=== PATIENT | female | born 1965 | race Caucasian/White ===

== ENCOUNTER 2016-11-22 23:02 | Emergency (ER) | payer SELFPAY ==
--- NOTE | 2016-11-22 23:28 | C.PDOC ---
History Of Present Illness Patient is a 51 y/o female, whose past medical history includes hypertension, and diabetes, that presents to the ED for evaluation of fluctuating blood pressure for the last week. Patient states her blood pressure was 180/86 today. Patient states that she also developed epigastric abdominal pain today at 17: 00. Notes feeling bloated. Patient states her pain faded away after taking Prilosec. Otherwise, denies any n/v/d, fever, headache, dizziness, chest pain, shortness of breath, or any other associated symptoms at this time. Time Seen by Provider: 11/22/16 23:15 Chief Complaint (Nursing): Chest Pain History Per: Patient History/Exam Limitations: no limitations Onset/Duration Of Symptoms: Days (1 week) Current Symptoms Are (Timing): Gone Quality: Other (gas) Associated Symptoms: denies: Nausea, Dyspnea, Diaphoresis, Syncope Modifying Factors: None Exacerbating Factors: None Alleviating Factors: None Recent travel outside of the [place]: No Additional History Per: Patient Past Medical History Reviewed: Historical Data, Nursing Documentation, Vital Signs Vital Signs: Last Vital Signs Temp 97.6 F 11/22/16 23:11 Pulse 86 11/22/16 23:11 Resp 14 11/22/16 23:11 BP 139/89 11/22/16 23:11 Pulse Ox 100 11/22/16 23:38 - Medical History PMH: Diabetes, HTN Surgical History: Family History: States: Unknown Family Hx - Social History Hx Alcohol Use: No Hx Substance Use: No - Immunization History Hx Influenza Vaccination: No Review Of Systems Except As Marked, All Systems Reviewed And Found Negative. Constitutional: Negative for: Fever, Chills Cardiovascular: Negative for: Chest Pain, Palpitations, Light Headedness Respiratory: Negative for: Cough, Shortness of Breath Gastrointestinal: Negative for: Nausea, Vomiting, Abdominal Pain, Diarrhea, Constipation Neurological: Negative for: Weakness, Numbness, Headache, Dizziness Physical Exam - Physical Exam Appears: Non-toxic, Other (Uncomfortable) Skin: Normal Color, Warm, Dry, No Rash Head: Atraumatic, Normacephalic Eye(s): bilateral: Normal Inspection, EOMI Neck: Normal ROM, Supple Chest: Symmetrical, No Deformity, No Tenderness Cardiovascular: Rhythm Regular, No Murmur Respiratory: Normal Breath Sounds, No Accessory Muscle Use, No Rales, No Rhonchi , No Wheezing Gastrointestinal/Abdominal: Normal Exam, Soft, No Tenderness (no localized tenderness), No Guarding, No Rebound Extremity: Normal ROM, No Deformity Neurological/Psych: Oriented x3, Normal Speech, Normal Cognition ED Course And Treatment - Laboratory Results Result Diagrams: 11/22/16 23:31 11/22/16 23:31 Lab Interpretation: Abnormal (WBC 12.7, Hgb 9.8, Hct 31.6, K+ 2.9 Na+ 131) ECG: Interpreted By Me ECG Rhythm: Sinus Rhythm (with prolonged QT interval) O2 Sat by Pulse Oximetry: 100 (on RA) Pulse Ox Interpretation: Normal Progress Note: EKG, blood work ordered and reviewed. Blood pressure was found to be 139/89 in the ER. Reevaluation Time: 00:10 Reassessment Condition: Unchanged (CT abdomen and pelvis ordered.) Disposition - Disposition Disposition Time: 00:11 Condition: STABLE - Clinical Impression Clinical Impression: Epigastric abdominal pain - Scribe Statement The provider has reviewed the documentation as recorded by the Scribnat Higgins All medical record entries made by the Scribe were at my direction and personally dictated by me. I have reviewed the chart and agree that the record accurately reflects my personal performance of the history, physical exam, medical decision making, and the department course for this patient. I have also personally directed, reviewed, and agree with the discharge instructions and disposition. Physician Patient Turnover Patient Signed Over To: Chris Hdez Handoff Comments: pending CT results
[2016-11-22 23:37] LABS: BASO # 0.1 K/uL (0.0-0.2); EOS # 0.1 K/uL (0.0-0.7); EOS % 0.4 % (0.0-4.0); HEMOGLOBIN 9.8 g/dL (11.0-16.0); LYMPH # 4.1 K/uL (1.0-4.3); LYMPH % 32.1 % (20.0-40.0); MEAN CORPUSCULAR HGB CONC 30.9 g/dL (33.0-37.0); MEAN PLATELET VOLUME 8.5 fL (7.2-11.7); MONO # 0.7 K/uL (0.0-0.8); MONO % 5.2 % (0.0-10.0); NEUT # 7.8 K/uL (1.8-7.0); NEUT % 61.3 % (50.0-75.0); RBC 4.45 Mil/uL (3.80-5.20); RED CELL DISTRIBUTION WIDTH 17.3 % (11.5-14.5); WHITE BLOOD COUNT 12.7 K/uL (4.8-10.8)
[2016-11-22 23:45] LABS: AST/SGOT 11 U/L (14-36); GFR AFRICAN-AMERICAN > 60; GFR NON-AFRICAN AMERICAN > 60
[2016-11-22 23:46] LABS: ALB/GLOB RATIO 1.1 (1.0-2.1); ALT/SGPT 21 U/L (9-52); BLOOD UREA NITROGEN 6 mg/dL (7-17); CALCIUM 8.3 mg/dl (8.6-10.4); LIPASE 56 U/L (23-300)
[2016-11-23] MEDS ORDERED: Potassium Chloride 20 mEq ER Tab PO STA (00:07)
[2016-11-23] MEDS ORDERED: Potassium Chloride 20 mEq ER Tab PO ONE (00:12)
[2016-11-23] MEDS ORDERED: Iohexol 240 (50 ml) ONE (00:16)
[2016-11-23] MEDS ORDERED: Iodixanol 320 MG/ML 100 ML BOTTLE IV ONE (01:09)
[2016-11-23 02:35] VITALS: BP 102/65; PULSE 74; RESP 18; TEMP 98.4; O2SAT 98
--- NOTE | 2016-11-23 09:39 | CT ---
PROCEDURE: CT Abdomen and Pelvis with contrast HISTORY: abdominal pain COMPARISON: None. TECHNIQUE: Helical CT of the abdomen pelvis was performed following oral and dynamic intravenous contrast administration. Clinical history of abdominal pain. Contrast dose: Visipaque 320-100 cc Radiation dose: Total exam DLP = 367 mGy-cm. This CT exam was performed using one or more of the following dose reduction techniques: Automated exposure control, adjustment of the mA and/or kV according to patient size, and/or use of iterative reconstruction technique. FINDINGS: LOWER THORAX: Unremarkable. LIVER: Unremarkable. No gross lesion or ductal dilatation. GALLBLADDER AND BILE DUCTS: Unremarkable. PANCREAS: Unremarkable. No gross lesion or ductal dilatation. SPLEEN: Unremarkable. ADRENALS: Unremarkable. No mass. KIDNEYS AND URETERS: Unremarkable. No hydronephrosis. No solid mass. VASCULATURE: Unremarkable. No aortic aneurysm. BOWEL: Unremarkable. No obstruction. No gross mural thickening. APPENDIX: Normal appendix. PERITONEUM: Unremarkable. No free fluid. No free air. LYMPH NODES: Unremarkable. No enlarged lymph nodes. BLADDER: Unremarkable. REPRODUCTIVE: Right appears prominent measuring 2.5 x 4.7 cm appearing hypoechoic, likely containing multiple cysts or possibly complex solitary cyst. Follow-up transvaginal ultrasound is advised for greater characterization. Uterus appears somewhat bulbous and inhomogeneous enhancement and underlying fibroids are not excluded. Left adnexal compartment appears unremarkable. BONES: Advanced degenerate disc disease L5-S1. Multilevel inferior thoracic spondylosis is also identified. OTHER FINDINGS: None. IMPRESSION: 1. No definite acute abdominal findings. 2. Upon right ovaries identified measuring 4.7 cm greatest dimension with likely multiple cysts internally or Salter complex cyst. Consider follow-up transvaginal pelvic ultrasound for greater characterization. Fibroid uterine disease is also considered.
--- NOTE | 2016-11-24 00:25 | CARD ---
APPROVED REPORT EKG Measurement Heart [id number] [place] [id number] <Conclusion> Normal sinus rhythm Prolonged QT Abnormal ECG
== END 2016-11-23 02:31 | disposition home or self-care (01) ==
LOC: C.ER 23:02
DX: R10.13 Epigastric pain (principal); E87.6 Hypokalemia
CPT/HCPCS: 74177; 80053; 83690; 84484; 85025; 93005; 99284; Q9967

== ENCOUNTER 2016-12-02 23:46 | Emergency (ER) | payer SELFPAY ==
[2016-12-03 00:03] VITALS: O2SAT 100
--- NOTE | 2016-12-03 00:21 | C.PDOC ---
History Of Present Illness 51 yo female, hx of htn, dm, presents with "high b/p". as per pt, was upto 190 systolic today. pt states she had "abdominal gas", which is now resolved. pt denies all complaints at thsi time, states shee feels well. at bedside b/p 120 systolic. no cp/abdomianl pain, n/v/d, urinary changes. pt asking to be d/c. noted pt was eval for similar previously. Time Seen by Provider: 12/03/16 00:14 Chief Complaint (Nursing): High Blood Pressure Past Medical History Reviewed: Historical Data, Nursing Documentation, Vital Signs Vital Signs: Last Vital Signs Temp 98.9 F 12/02/16 23:59 Pulse 92 H 12/02/16 23:59 Resp 20 12/02/16 23:59 BP 130/77 12/02/16 23:59 Pulse Ox 100 12/02/16 23:59 - Medical History PMH: Diabetes, HTN Surgical History: Family History: States: Unknown Family Hx - Social History Hx Alcohol Use: No Hx Substance Use: No - Immunization History Hx Influenza Vaccination: No Review Of Systems Except As Marked, All Systems Reviewed And Found Negative. Gastrointestinal: Positive for: Abdominal Pain Physical Exam - Physical Exam Appears: Well, No Acute Distress Skin: Normal Color, Warm, Dry Eye(s): bilateral: Normal Inspection, PERRL, EOMI Nose: Normal Throat: Normal Neck: Normal Cardiovascular: Rhythm Regular Respiratory: Normal Breath Sounds Gastrointestinal/Abdominal: Normal Exam, Soft, No Tenderness, No Guarding, No Rebound Back: Normal Inspection Extremity: Normal ROM ED Course And Treatment O2 Sat by Pulse Oximetry: 100 Medical Decision Making Medical Decision Making: pt refusing w/u in er, offered labs. as pt asymatotic, b/p 120 systolic. will d.c. advise outtp f/u and return precautions Disposition - Disposition Referrals: Lam Valentine MD [Staff Provider] - Disposition: HOME/ ROUTINE Disposition Time: 00:21 Condition: STABLE Additional Instructions: you are declining evaluation in er. you are able to return to er with any worsening symptoms or concerns. please discuss your blood pressure meds with your doctor. Instructions: Acute Abdominal Pain (ED), Chronic Hypertension (ED) - Clinical Impression Clinical Impression: Abdominal pain, High blood pressure
[2016-12-03 00:27] VITALS: BP 123/73; PULSE 84; RESP 15; TEMP 97.9
== END 2016-12-03 00:31 | disposition home or self-care (01) ==
LOC: C.ER 23:46
DX: I10 Essential (primary) hypertension (principal); R10.9 Unspecified abdominal pain

== ENCOUNTER 2017-01-02 12:44 | Emergency (ER) | payer OTHER ==
[2017-01-02 12:51] VITALS: TEMP 98.9
[2017-01-02 13:54] LABS: BASO % 0.3 % (0.0-2.0); EOS # 0.1 K/uL (0.0-0.7); EOS % 0.7 % (0.0-4.0); HEMATOCRIT 31.5 % (34.0-47.0); LYMPH # 1.6 K/uL (1.0-4.3); LYMPH % 15.2 % (20.0-40.0); MEAN CORPUSCULAR HEMOGLOBIN 23.6 pg (27.0-31.0); MEAN CORPUSCULAR HGB CONC 32.2 g/dL (33.0-37.0); MEAN PLATELET VOLUME 8.4 fL (7.2-11.7); MONO # 0.4 K/uL (0.0-0.8); MONO % 3.5 % (0.0-10.0); NRBC % 0.1 % (0.0-2.0); RED CELL DISTRIBUTION WIDTH 17.4 % (11.5-14.5); WHITE BLOOD COUNT 10.9 K/uL (4.8-10.8)
[2017-01-02 13:57] LABS: MEAN CELL VOLUME 73.2 fL (81.0-99.0)
[2017-01-02] MEDS ORDERED: Simethicone 80 mg Chewtab PO STA (14:07)
[2017-01-02 14:09] LABS: CHLORIDE 100 mmol/L (98-107); POTASSIUM 3.5 mmol/L (3.6-5.2); SODIUM 139 mmol/L (132-148)
[2017-01-02 14:11] LABS: ALB/GLOB RATIO 0.9 (1.0-2.1); AST/SGOT 14 U/L (14-36); BILIRUBIN,TOTAL 0.5 mg/dL (0.2-1.3); CARBON DIOXIDE 25 mmol/L (22-30); GFR AFRICAN-AMERICAN > 60; TOTAL PROTEIN 7.7 g/dL (6.3-8.3)
[2017-01-02 14:12] LABS: ALKALINE PHOSPHATASE 83 U/L (38-126); ALT/SGPT 20 U/L (9-52); BLOOD UREA NITROGEN 8 mg/dL (7-17); CALCIUM 9.1 mg/dl (8.6-10.4); GLUCOSE,RANDOM 121 mg/dL (65-105)
[2017-01-02 14:43] LABS: THYROID STIMULATING HORMONE 0.17 mIU/L (0.46-4.68)
[2017-01-02 15:10] VITALS: BP 117/72; PULSE 85; RESP 16; O2SAT 99
--- NOTE | 2017-01-02 15:39 | RAD ---
HISTORY: chest pain COMPARISON: None available. TECHNIQUE: Chest, one view. FINDINGS: Examination limited by habitus. LUNGS: No focal consolidation. Please note that chest x-ray has limited sensitivity for the detection of pulmonary masses. PLEURA: No significant pleural effusion identified. No definite pneumothorax . CARDIOVASCULAR: Heart size appears within normal limits. OSSEOUS STRUCTURES: Degenerative changes of the spine. VISUALIZED UPPER ABDOMEN: Unremarkable. OTHER FINDINGS: None. IMPRESSION: No focal consolidation, significant pleural effusion, or definite pneumothorax identified.
--- NOTE | 2017-01-02 16:00 | C.PDOC ---
History Of Present Illness 51 yr old female presents to the ER with complaints of palpitations since morning. Patient states she checked her blood pressure at home an found it to be 160/110. Patient states she is compliant with her blood pressure medicine. Currently denies fever, chills, chest pain, SOB, nausea, vomiting, headache, dizziness, weakness or numbness. Time Seen by Provider: 01/02/17 13:33 Chief Complaint (Nursing): Palpitations History Per: Patient History/Exam Limitations: no limitations Onset/Duration Of Symptoms: Sudden Onset Past Medical History Reviewed: Historical Data, Nursing Documentation, Vital Signs Vital Signs: Last Vital Signs Temp 98.9 F 01/02/17 12:48 Pulse 85 01/02/17 15:08 Resp 16 01/02/17 15:08 BP 117/72 01/02/17 15:08 Pulse Ox 99 01/02/17 16:02 - Medical History PMH: Diabetes, HTN Surgical History: Family History: States: No Known Family Hx - Social History Hx Alcohol Use: No Hx Substance Use: No - Immunization History Hx Influenza Vaccination: No Review Of Systems Except As Marked, All Systems Reviewed And Found Negative. Constitutional: Negative for: Fever, Chills Cardiovascular: Negative for: Chest Pain Respiratory: Negative for: Shortness of Breath Gastrointestinal: Negative for: Nausea, Vomiting Neurological: Negative for: Weakness, Numbness, Headache, Dizziness Physical Exam - Physical Exam Appears: Well, Non-toxic, No Acute Distress Skin: Normal Color, Warm, Dry, No Rash Head: Atraumatic, Normacephalic Eye(s): bilateral: Normal Inspection, PERRL, EOMI Oral Mucosa: Moist Neck: Normal, Normal ROM, Supple Chest: Symmetrical, No Tenderness Cardiovascular: Rhythm Regular, No Murmur Respiratory: Normal Breath Sounds, No Rales, No Rhonchi, No Stridor, No Wheezing Extremity: Normal ROM, No Swelling Neurological/Psych: Oriented x3, Normal Speech, Normal Motor ED Course And Treatment - Laboratory Results Result Diagrams: 01/02/17 13:47 01/02/17 13:47 O2 Sat by Pulse Oximetry: 99 (RA) Pulse Ox Interpretation: Normal - Other Rad CXR X-Ray: Viewed By Me, Read By Radiologist Interpretation: HISTORY: chest pain. COMPARISON: None available. TECHNIQUE: Chest, one view. FINDINGS: Examination limited by habitus. LUNGS: No focal consolidation. Please note that chest x-ray has limited sensitivity for the detection of pulmonary masses. PLEURA: No significant pleural effusion identified. No definite pneumothorax . CARDIOVASCULAR: Heart size appears within normal limits. OSSEOUS STRUCTURES: Degenerative changes of the spine. VISUALIZED UPPER ABDOMEN: Unremarkable. OTHER FINDINGS: None. IMPRESSION: No focal consolidation, significant pleural effusion, or definite pneumothorax identified. Medical Decision Making Medical Decision Making: PLAN: * CXR * EKG * Troponin * CBC * CMP Disposition - Disposition Referrals: [facility], [Non-Staff] - Disposition: HOME/ ROUTINE Disposition Time: 14:30 Condition: GOOD Additional Instructions: Thank you for letting us take care of you today. Your provider was Dr. Mensah. You were treated for palpitations. The emergency medical care you received today was directed at your acute symptoms. If you were prescribed any medication, please fill it and take as directed. It may take several days for your symptoms to resolve. Return to the Emergency Department if your symptoms worsen, do not improve, or if you have any other problems. Please contact your doctor or call one of the physicians/clinics you have been referred to that are listed on the Patient Visit Information form that is included in your discharge packet. Bring any paperwork you were given at discharge with you along with any medications you are taking to your follow up visit. Our treatment cannot replace ongoing medical care by a primary care provider (PCP) outside of the emergency department. Thank you for allowing the [facility] team to be part of your care today. Follow up with your primary doctor in 2-3 days for further evaluation of your thyroid gland. Instructions: Palpitations (ED) Forms: [email or web address] ([place]) - Clinical Impression Clinical Impression: Palpitations - Scribe Statement The provider has reviewed the documentation as recorded by the Lorenaibe Maday Bartlett Provider Attestation: All medical record entries made by the Lorenaibnat were at my direction and personally dictated by me. I have reviewed the chart and agree that the record accurately reflects my personal performance of the history, physical exam, medical decision making, and the department course for this patient. I have also personally directed, reviewed, and agree with the discharge instructions and disposition.
--- NOTE | 2017-01-02 20:05 | CARD ---
APPROVED REPORT EKG Measurement Heart [id number] [place] [id number] [id number] <Conclusion> Normal sinus rhythm Normal ECG
== END 2017-01-02 16:01 | disposition home or self-care (01) ==
LOC: C.ER 12:44
DX: R00.2 Palpitations (principal)